=== PATIENT | female | born 1955 | race Two or more races ===

== ENCOUNTER 2024-06-08 14:21 | Emergency (ER) | payer OTHER ==
[~2024-06-08] VITALS: Ht 157.5 cm; Wt 50.0 kg
[2024-06-08 16:51] VITALS: BP 157/82; PULSE 70; RESP 18; TEMP 97.8; O2SAT 98
== END 2024-06-08 16:58 | disposition home or self-care (01) ==
LOC: ER 14:21
DX: G62.9 Polyneuropathy, unspecified (principal); I10 Essential (primary) hypertension; G51.0 Bell's palsy
CPT/HCPCS: 70450; 93005